=== PATIENT | female | born 1950 | race Caucasian/White ===

== ENCOUNTER 2018-04-09 08:37 | Inpatient (IN) | payer MEDICARE, OTHER ==
[~2018-04-09] VITALS: Ht 170.2 cm; Wt 77.3 kg
[~2018-04-09 08:37] MED LIST: BACITRACIN 50,000 UNIT ONE; BECL10.62 INH; BUPIVACAINE/PF-EPI 0.5% 1:200K ONE; ESTR10TA VG; GABA300C10 PO; THROMBIN 5,000 UNIT VIAL TP ONE
[2018-04-09] MEDS ORDERED: CEFAZOLIN 1,000 MG ONE (10:23)
[2018-04-09] MEDS ORDERED: PROPOFOL 10 MG/ML, 50ML ONE (10:23)
[2018-04-09] MEDS ORDERED: DEXAMETHASONE 4 MG/ML, 1ML ONE (10:23)
[2018-04-09] MEDS ORDERED: SUCCINYLCHOLINE 20 MG/ML, 10ML ONE (10:23)
[2018-04-09] MEDS ORDERED: PROPOFOL 10 MG/ML, 20ML ONE (10:23)
[2018-04-09 12:41] VITALS: BP 129/82
[2018-04-09] MEDS ORDERED: tylenol PO (12:47)
[2018-04-09] MEDS ORDERED: LACTATED RINGERS 1,000 ML IV SCH (12:48)
[2018-04-09] MEDS ORDERED: ACETAMINOPHEN 500 MG TABLET PO ONE (13:00)
[2018-04-09] MEDS ORDERED: GABAPENTIN 300 MG CAPSULE PO ONE (13:00)
[2018-04-09] MEDS ORDERED: MIDAZOLAM 1 MG/ML, 2ML ONE (14:15)
[2018-04-09] MEDS ORDERED: FENTANYL PF 250 MCG/5ML ONE (14:15)
[2018-04-09] MEDS ORDERED: HYDROmorphone 2 MG/ML, 1ML IVPush PRN (16:00)
[2018-04-09] MEDS ORDERED: ALBUTEROL SULFATE 2.5 MG/3 ML NPPB PRN (16:00)
[2018-04-09] MEDS ORDERED: PROMETHAZINE 25 MG/ML, 1ML IV PRN (16:00)
[2018-04-09] MEDS ORDERED: LABETALOL 5MG/ML, 20ML IV PRN ×2 (16:00→19:00)
[2018-04-09] MEDS ORDERED: hydrALAzine 20 MG/ML, 1ML IV PRN (16:00)
[2018-04-09] MEDS ORDERED: HALOPERIDOL 5 MG/ML IV PRN (16:00)
[2018-04-09] MEDS ORDERED: OXYcodone 5 MG/5 ML ORAL.SOL UDC ONE ×2 (17:19→17:44)
[2018-04-09] MEDS ORDERED: FENTANYL PF 100 MCG/2ML ONE (17:19)
[2018-04-09] MEDS: OXYcodone 5 MG/5 ML ORAL.SOL UDC PO PRN ×2 (17:22→17:45)
[2018-04-09] MEDS: FENTANYL PF 100 MCG/2ML IV PRN ×4 (17:24→17:53)
[2018-04-09] MEDS ORDERED: DIPHENHYDRAMINE 50 MG/ML, 1ML IVPush PRN (19:00)
[2018-04-09] MEDS ORDERED: MAGNESIUM HYDROXIDE 8%, 30ML UDC PO PRN (19:00)
[2018-04-09] MEDS ORDERED: ONDANSETRON 2MG/ML, 2ML IV PRN (19:00)
[2018-04-09] MEDS ORDERED: CYCLOBENZAPRINE 10 MG TABLET PO PRN (19:00)
[2018-04-09] MEDS ORDERED: DIPHENHYDRAMINE 50 MG CAPSULE PO PRN (19:00)
[2018-04-09] MEDS ORDERED: morphine SULFATE 10 MG/ML, 1ML IV PRN (19:00)
[2018-04-09] MEDS ORDERED: ACETAMINOPHEN 325 MG TABLET PO PRN (19:00)
[2018-04-09] MEDS ORDERED: BISACODYL 10 MG SUPP PR PRN (19:00)
[2018-04-09] MEDS ORDERED: OXYcodone IR 5MG TABLET PO PRN (19:00)
[2018-04-09] MEDS ORDERED: ACETAMINOPHEN 650 MG SUPP PR PRN (19:00)
[2018-04-09 20:00] VITALS: BP 139/79
[2018-04-09] MEDS: FAMOTIDINE 20 MG TABLET PO SCH (20:17)
[2018-04-09] MEDS: DEXAMETHASONE 4 MG/ML, 1ML IVPush SCH (20:17)
[2018-04-09] MEDS: D5%-0.9% NACL+KCL 20MEQ 1,000 ML IV SCH (20:17)
[2018-04-09] MEDS: GABAPENTIN 300 MG CAPSULE PO SCH (20:17)
[2018-04-09] MEDS: QVAR 40 MCG HOMEINH SCH (21:00)
[2018-04-09] MEDS ORDERED: BUDESONIDE 0.5 MG/2 ML INHA NPPB SCH (21:00)
[2018-04-09] MEDS: CEFAZOLIN 1,000 MG in SODIUM CHLORIDE 0.9% 50 ML IVPB SCH (23:37)
[2018-04-09] MEDS: HYDROcodone/APAP 5/325 TABLET PO PRN (23:42)
[2018-04-10 00:45] VITALS: BP 95/63
[2018-04-10] MEDS: DEXAMETHASONE 4 MG/ML, 1ML IVPush SCH ×2 (01:56→09:28)
[2018-04-10] MEDS: D5%-0.9% NACL+KCL 20MEQ 1,000 ML IV SCH (05:00)
[2018-04-10 05:37] LABS: MEAN CORPUSCULAR HEMOGLOBIN 30.8 pg (27.0-34.8); MEAN CORPUSCULAR VOLUME 90.7 fL (80-100); MEAN PLATELET VOLUME 7.8 fL (7.4-10.4); PLATELET COUNT 314 x10^3/uL (130-400); RED BLOOD COUNT 4.34 x10^6/uL (3.82-5.3); RED CELL DISTRIBUTION WIDTH 12.4 % (9.6-15.2)
[2018-04-10 05:42] LABS: ANION GAP 7 mmol/L (5-15); CALCIUM 7.9 mg/dL (8.5-10.1); CHLORIDE 109 mmol/L (98-107); CREATININE 0.74 mg/dL (0.55-1.02)
[2018-04-10 07:02] LABS: BASOPHILS % (AUTO) 0 % (0-1); EOSINOPHILS % (AUTO) 0 % (1-7); LYMPHOCYTES # (AUTO) 0.51 x10^3/uL (1-3.4); LYMPHOCYTES % (AUTO) 5 % (22-44); MD SCAN; MONOCYTES # (AUTO) 0.12 x10^3/uL (0.2-0.8); MONOCYTES % (AUTO) 1 % (2-9); NEUTROPHILS # (AUTO) 10.81 x10^3/uL (1.8-6.8); NEUTROPHILS % (AUTO) 95 % (42-75)
[2018-04-10 07:51] VITALS: BP 105/52
[2018-04-10] MEDS: CEFAZOLIN 1,000 MG in SODIUM CHLORIDE 0.9% 50 ML IVPB SCH (08:29)
[2018-04-10] MEDS ORDERED: SENNA/DOCUSATE TABLET PO SCH (09:00)
[2018-04-10] MEDS: QVAR 40 MCG HOMEINH SCH (09:00)
[2018-04-10] MEDS ORDERED: DOXYCYCLINE 100MG TABLET PO SCH (09:00)
[2018-04-10] MEDS: FAMOTIDINE 20 MG TABLET PO SCH (09:29)
[2018-04-10] MEDS: GABAPENTIN 300 MG CAPSULE PO SCH (09:29)
[2018-04-10] MEDS: HYDROcodone/APAP 5/325 TABLET PO PRN (09:40)
[2018-04-10] MEDS ORDERED: CYCL-259 PO (10:14)
[2018-04-10] MEDS ORDERED: HYDR-3240 PO (10:14)
[2018-04-10] MEDS ORDERED: DOXY100T9 PO (10:14)
[2018-04-10 10:49] VITALS: BP 130/72
== END 2018-04-10 10:55 | disposition home or self-care (01) | DRG 472 ==
LOC: ORIP 11:57 → 4NOR 18:28
PROVIDERS: ADMIT Neurological Surgery; ATTEND Neurological Surgery
PROC: 0RB30ZZ Excision of Cervical Vertebral Disc, Open Approach (ICD-10-PCS; 2018-04-09)
PROC: 4A11X4G Monitoring of Peripheral Nervous Electrical Activity, Intraoperative, External Approach (ICD-10-PCS; 2018-04-09)
PROC: 0RG20A0 Fusion of 2 or more Cervical Vertebral Joints with Interbody Fusion Device, Anterior Approach, Anterior Column, Open Approach (ICD-10-PCS; principal; 2018-04-09 09:00)
DX: M48.02 Spinal stenosis, cervical region (principal); G95.29 Other cord compression; M50.123 Cervical disc disorder at C6-C7 level with radiculopathy; M25.78 Osteophyte, vertebrae; J45.909 Unspecified asthma, uncomplicated; F32.9 Major depressive disorder, single episode, unspecified; Z91.040 Latex allergy status; R20.2 Paresthesia of skin
CPT/HCPCS: 36415; 72040; 76001; 80048; 85025; C1713; G0378; J0690; J1100; J2250; J2704; J3010; C1762; J0330; J3480; J7120